=== PATIENT | female | born 1995 | race Caucasian/White ===

== ENCOUNTER 2017-02-01 15:03 | Emergency (ER) ==
[2017-02-01] MEDS ORDERED: DUONEB NEB STA (15:06)
[2017-02-01] MEDS ORDERED: SOLU-MEDROL 125 MG IVP STA (15:06)
[2017-02-01 15:08] VITALS: BP 116/80; TEMP 100.1; BMI 21.3
--- NOTE | 2017-02-01 17:02 | ED.PDOC ---
General ED Provider: Dr. ADIN HORNER Chief Complaint: Sore Throat Stated Complaint: sore throat Time Seen by Physician: 15:00 Mode of Arrival: Walk-In Information Source: Patient Exam Limitations: No limitations Primary Care Provider: JESSY RAMOS Nursing and Triage Documentation Reviewed and Agree: Yes EENT Complaint Exam - Throat Complaint/Exam Symptoms Are: Resolved Timimg: Intermittent Initial Severity: Moderate Current Severity: None Aggravating: Reports: Eating Alleviating: Reports: None Associated Signs and Symptoms: Denies: Fever, Dysphagia, Drooling, Foreign body sensation, Chills, Cough, Wheezing, Hoarseness, Sinus discomfort, Nasal congestion, Difficulty breathing, Lethargy, Irritability, Decreased activity, Vomiting, Diarrhea, Decreased hearing, Ear drainage Related History: Reports: Similar Episode Uvula Midline: Yes Nafisa-tonsillar Fluctuence: No Scarlatinaform Rash Present: No Stridor Present: No Sinus Tenderness Present: No Tonsillar Hypertrophy Present: No Tonsillar Exudate Present: No Nafisa-tonsillar Swelling Present: No Adenopathy Present: No Splenomegaly Present: No Review of Systems - Review Of Systems Constitutional: Reports: No symptoms Eyes: Reports: No symptoms Ears, Nose, Mouth, Throat: Reports: Throat pain Respiratory: Reports: No symptoms Cardiac: Reports: No symptoms GI: Reports: No symptoms : Reports: No symptoms Musculoskeletal: Reports: No symptoms Skin: Reports: No symptoms Neurological: Reports: No symptoms Endocrine: Reports: No symptoms Hematologic/Lymphatic: Reports: No symptoms All Other Systems: Reviewed and Negative Past Medical History - Past Medical History Previously Healthy: Yes Endocrine: Reports: None Cardiovascular: Reports: None Respiratory: Reports: None Hematological: Reports: None Gastrointestinal: Reports: None Genitourinary: Reports: None Neuro/Psych: Reports: None Musculoskeletal: Reports: None Cancer: Reports: None Last Menstrual Period: 27 weeks preg. - Surgical History General Surgical History: Reports: None - Family History Family History: Reports: None - Social History Smoking Status: Never smoker Hx Substance Use: No Alcohol Screening: None Physical Exam - Physical Exam Appearance: Well-appearing, No pain distress, Well-nourished Eyes: VANE, EOMI, Conjunctiva clear ENT: Erythema Respiratory: Airway patent, Breath sounds clear, Breath sounds equal, Respirations nonlabored Cardiovascular: RRR, Pulses normal, No rub, No murmur GI/: Soft, Nontender, No masses, Bowel sounds normal, No Organomegaly Musculoskeletal: Normal strength, ROM intact, No edema, No calf tenderness Skin: Warm, Dry, Normal color Neurological: Sensation intact, Motor intact, Reflexes intact, Cranial nerves intact, Alert, Oriented Psychiatric: Affect appropriate, Mood appropriate Critical Care Note - Critical Care Note Total Time (mins): 0 Course - Course Orders, Labs, Meds: Orders Category Date Time Status ED IV/MEDIPORT/POWERPORT .ONCE EMERGENCY 02/01/17 15:06 Inactive ABG Stat LAB 02/01/17 15:05 Stop Req RAPID STREP SCREEN [STREP SCREEN] Stat LAB 02/01/17 16:31 Received Vital Signs: Temp Pulse Resp BP Pulse Ox 02/01/17 15:04 100.1 F H 100 H 16 116/80 99 Departure - Departure Time of Disposition: 17:01 Disposition: HOME SELF-CARE Discharge Problem: Sore throat symptom Pharyngitis Qualifiers: Pharyngitis/tonsillitis etiology: unspecified etiology Qualified Code(s): J02.9 - Acute pharyngitis, unspecified Instructions: Pharyngitis (ED) Condition: Good Pt referred to PMD for follow-up: Yes Additional Instructions: Please call your Family Physician as soon as possible to schedule a follow-up appointment. Allergies/Adverse Reactions: Allergies No Known Allergies Allergy (Verified 02/01/17 15:08) Home Medications: Ambulatory Orders Pindolol 5 mg PO DAILY 02/01/17 Pnv with Ca,No.72/Iron,Carb/FA [ Plus Iron Tablet] 1 each PO DAILY 02/01
== END 2017-02-01 17:10 | disposition home or self-care (01) ==
LOC: ED 15:03
DX: J02.9 Acute pharyngitis, unspecified (principal); Z33.1 Pregnant state, incidental
CPT/HCPCS: 87651; 87880; 99283